=== PATIENT | male | born 1960 | race Caucasian/White ===

== ENCOUNTER 2020-08-26 23:28 | Emergency (ER) | payer OTHER ==
[~2020-08-26] VITALS: Ht 182.9 cm; Wt 108.9 kg
[2020-08-26] MEDS ORDERED: LIPITOR (23:42)
[2020-08-26] MEDS ORDERED: ACCUPRIL (23:42)
[2020-08-26] MEDS ORDERED: DYAZIDE (23:42)
[2020-08-26] MEDS ORDERED: ASPIRIN (23:43)
[2020-08-27 01:11] VITALS: BP 182/82
== END 2020-08-27 01:12 | disposition home or self-care (01) ==
LOC: M.ERS 23:28
DX: R09.81 Nasal congestion (principal); Z20.828 Contact with and (suspected) exposure to other viral communicable diseases; E78.00 Pure hypercholesterolemia, unspecified